=== PATIENT | female | born 2000 | race Caucasian/White ===

== ENCOUNTER 2019-03-20 22:39 | Inpatient (IN) | payer BC ==
[2019-03-20 23:21] LABS: Urine Appearance Clear; Urine Bilirubin Negative (Negative); Urine Blood Negative (Negative); Urine Color Straw; Urine Glucose Negative (Negative); Urine Ketones Negative (Negative); Urine Nitrite Negative (Negative); Urine Protein Negative (Negative); Urine Specific Gravity 1.002 (1.010-1.030); Urine Urobilinogen Negative (Negative)
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
[2019-03-20 23:38] LABS: ABS Basophils 0.1 10^3/ul (0-0.2); ABS Eosinophils 0.1 10^3/ul (0-0.6); ABS Lymphocytes 2.2 10^3/ul (1.0-4.8); ABS Monocytes 0.4 10^3/ul (0-0.8); ABS Neutrophils 3.9 10^3/ul (1.5-7.7); ABS Nucleated RBC 0 10^3/ul; Eosinophil % 1.4 %; Hematocrit 38 % (33-41); Hemoglobin 12.5 g/dL (12.0-16.0); Lymphocyte % 32.9 %; Mean Corpuscular HGB Conc 33 g/dL (31-36); Mean Corpuscular Hemoglobin 30 pg (27-31); Mean Corpuscular Volume 91 fL (80-97); Mean Platelet Volume 8.8 fL (7.4-10.4); Nucleated Red Blood Cells % 0; Platelet Count 258 10^3/uL (150-450); Red Blood Count 4.13 10^6 /uL (3.70-4.87); Red Cell Distribution Width 13 % (10.5-15); White Blood Count 6.8 10^3/uL (3.5-10.8)
[2019-03-20 23:45] LABS: Urine Benzodiazepine Screen None Detected (None Detect); Urine Opiates Screen None Detected (None Detect)
[2019-03-20 23:55] LABS: ALT 22 U/L (7-52); AST 16 U/L (13-39); Albumin 4.3 g/dL (3.2-5.2); Albumin/Globulin Ratio 1.5 (1-3); Alkaline Phosphatase 47 U/L (34-104); Anion Gap 9 mmol/L (2-11); BUN/Creatinine Ratio 13.6 (8-20); Blood Urea Nitrogen 11 mg/dL (6-24); CO2 Carbon Dioxide 21 mmol/L (22-32); Calcium 8.9 mg/dL (8.6-10.3); Chloride 111 mmol/L (101-111); EGFR African American 109.1 (>60); EGFR Non-African American 90.1 (>60); Globulin 2.8 g/dL (2-4); Glucose 92 mg/dL (70-100); Potassium 3.7 mmol/L (3.5-5.0); Sodium 141 mmol/L (135-145); Total Protein 7.1 g/dL (6.4-8.9)
[2019-03-21 00:01] LABS: HCG Pregnancy < 0.60 mIU/mL
[2019-03-21 00:44] LABS: Acetaminophen < 15 mcg/mL; Alcohol 173 mg/dL (<10); Salicylate < 2.50 mg/dL (<30)
[2019-03-21 00:58] LABS: TSH (Thyroid Stimulating Horm) 2.53 mcIU/mL (0.34-5.60)
--- NOTE | 2019-03-21 07:18 | ED ---
Progress - Progress Note Progress Note: The patient was signed out by Dr. Toscano to Dr. Anderson, awaiting mental health evaluation. - Consult/PCP Time Called: 02:28 Course/Dx - Course Course Of Treatment: Patient is a 18 y/o female who presents to the ED with SI following a night of drinking. Blood work and UA obtained. Patient is cleared for MHE at 0425. This patient was put on MHU hold to have MHE in the morning. This patient will be signed out to Dr. Anderson upon shift change, pending dispo , awaiting MHE. Patient is dx with depression and alcohol intoxication. - Diagnoses Provider Diagnoses: Depression - Provider Notifications Discussed Care Of Patient With: Neris Pathak Time Discussed With Above Provider: 13:55 Instructed by Provider To: Admit As Inpatient Discharge - Sign-Out/Discharge Documenting (check all that apply): Patient Departure - admission, Receiving Sign-Out Receiving patient FROM: Israel Toscano Patient Received Moderate/Deep Sedation with Procedure: No - Discharge Plan Condition: Fair Disposition: ADMITTED TO [facility] Referrals: No Primary Care Phys,NOPCP [Primary Care Provider] - - Billing Disposition and Condition Condition: FAIR Disposition: Admitted to [facility] - Attestation Statements Document Initiated by Scribe: Yes Documenting Scribe: Chaz Kruger Provider For Whom Juanita is Documenting (Include Credential): Nick Anderson MD Scribe Attestation: Chaz Bone, scribed for Nick Anderson MD on 03/21/19 at 1832. Scribe Documentation Reviewed: Yes Provider Attestation: The documentation as recorded by the Chaz jordan accurately reflects the service I personally performed and the decisions made by me, Nick Anderson MD Status of Scribe Document: Viewed
[2019-03-21] MEDS ORDERED: Acetaminophen TAB* 325 MG PO PRN (15:51)
[2019-03-21] MEDS ORDERED: Al Hydrox/Mg Hydrox/Simet LIQ* 30 ML UDC PO PRN (15:51)
[2019-03-21] MEDS: Lisdexamfetamine(NF) 10 MG CAP PO SCH (21:41)
[2019-03-22 08:20] VITALS: BP 141/89
[2019-03-22] MEDS ORDERED: NORGESTIMATE PO SCH (09:00)
[2019-03-22] MEDS ORDERED: ETHINYL ESTRADIOL PO SCH (09:00)
[2019-03-22] MEDS ORDERED: Vitamin THERAPEUTIC TAB PO SCH (09:00)
[2019-03-22] MEDS: Lisdexamfetamine(NF) 10 MG CAP PO SCH (09:59)
--- NOTE | 2019-03-22 11:15 | DCNOTE ---
Subjective - Subjective Service Types: 37508 Hosp DC Day Mgmt complex over 30 min Discharge Date: 03/22/19 Subjective: Patient presents as euthymic with bright affect. She denies Si or passive wish. She is insightful in regards to alcohol use complicating stressors. She reports desire to be discharged from hospital in order to resume academic responsibilities. Patient's mother, Yana, arrived from [place] to support her daughter. She is agreeable to discharge plan. Objective - Appearance Appearance: Well Developed/Nourished Dysmorphic Features: No Hygiene: Normal Grooming: Well Kept - Behavior Psychomotor Activities: Normal Exhibits Abnormal Movement: No - Attitude and Relatedness Attitude and Relatedness: Cooperative Eye Contact: Good - Speech Quality: Unpressured Latencies: Normal Quantity: Appropriate - Mood Patient's Decription of Mood: "Fine" - Affect Observed Affect: Good Affect Consistent with: Euthymia - Thought Process Patient's Thought Process: Coherent, Goal Directed Thought Content: No Passive Wish, No Suicidal Planning, No Homicidal Ideation, No Paranoid Ideation - Sensorium Experiencing Hallucinations: No, Sensorium is Clear Type of Hallucinations: Visual: No, Auditory: No, Command: No - Level of Consciousness Level of Consciousness: Alert Orientation: Yes Intact, Yes Orientated to Time, Yes Orientated to Place, Yes Orientated to Person - Impulse Control Impulse Control: Intact - Insight and Judgement Insight and Judgement: Good - Group Participation Particating in Group Activities: Yes - Medication Management Medication Management Adherence: Yes DC Assessment - Assessment Clinical Impression: 18yo wf, domiciled, [employer] with history of ADHD and current outpatient therapy who presented to ED with friends due to suicidal statements in the context of alcohol intoxication. She denies SI or passive wish. She exhibits insight and goal-orientation. She has strong family and friend supports. She no longer meets criteria for inpatient psychiatric hospitalization. Merits Inpatient Hospitalization: Yes Clear for Discharge: Adequate Clinical Respons, Acceptable Safety Profile Inpatient DSM-V Dx: F10.94 Discharge Planning - Discharge Planning Discharge Plan: Outpatient Follow Up Recommendations for Continuing Care: Psychotherapy, Substance Abuse Counseling Medications: Current Medications Lisdexamfetamine Dimesylate (Vyvanse(Nf)) 50 mg PO DAILY [facility] Last Admin: 03/22/19 09:59 Dose: 50 mg Pto Med: Norgestimage/Ethinyl Estradiol 0.25/0. 035 Mg 1 dose PO DAILY [facility] Last Admin: 03/22/19 10:21 Dose: 1 dose Discharge Planning: Prescriptions provided for discharge [] Yes [x] No Follow up care details as per social work arrangements: Rick ALARCON PCP in [facility] Patient response to discharge plan: [x] eager for discharge [x] agreeable with discharge plan [] ambivalent about discharge [] disagrees with discharge today
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
== END 2019-03-22 12:25 | disposition home or self-care (01) | DRG 775 ==
LOC: ED 22:39 → BSU 03-21 18:44
PROVIDERS: ADMIT Psychiatry & Neurology Psychiatry; ATTEND Psychiatry & Neurology Psychiatry
DX: F10.94 Alcohol use, unspecified with alcohol-induced mood disorder (principal); R45.851 Suicidal ideations; F90.9 Attention-deficit hyperactivity disorder, unspecified type; Y90.6 Blood alcohol level of 120-199 mg/100 ml; Z79.3 Long term (current) use of hormonal contraceptives; Z79.899 Other long term (current) drug therapy
CPT/HCPCS: 36415; 80053; 80307; 80320; 80329; 81003; 84443; 84702; 85025; 99238; 99284; G0480